=== PATIENT | female | born 1950 | race Caucasian/White ===

== ENCOUNTER 2016-05-24 19:30 | Observation (INO) | payer MEDICARE, OTHER ==
[~2016-05-24] VITALS: Ht 162.6 cm; Wt 126.1 kg
--- NOTE | 2016-05-24 20:47 | HP ---
DATE OF ADMISSION: 05/24/2016 REASON FOR ADMISSION: Anemia. HISTORY OF PRESENT ILLNESS: This 65-year-old female who has multiple medical problems is currently residing at [facility] in [place]. I follow the patient there for her medical problems. The patient was last seen by me there last week. The patient had been a patient at [facility] , where she was admitted for a debridement of a right heel diabetic ulcer. She also has osteomyelitis of the right heel and is being treated with antibiotics. The patient has chronic kidney disease. The patient last week had a serum creatinine that went up to 3.4. I discontinued the diuretics that she was taking. The patient had lab tests done yesterday, which were ordered by me, and her hemoglobin was 7.2. The patient does have a history of chronic anemia secondary to longstanding chronic kidney disease. The patient is being admitted now because of a decrease in her hemoglobin and for a blood transfusion. The patient is usually followed at [facility] by Dr. Epps. I have been following her since she has been a resident at [facility] here in [place]. Past medical history is remarkable for the patient is mostly bedridden; however, she has been increasing her ambulation with physical therapy. The patient denies any chest pain or shortness of breath. She has not had any noticeable GI blood loss. 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 CURRENT MEDICATIONS: Include the followin. Allopurinol 100 mg a day. 2. Amlodipine 5 mg 2 times a day. 3. Aspirin 81 mg a day. 4. Diazepam 5 mg at bedtime as needed for sleep. 5. Docusate sodium 200 mg by mouth at bedtime. 6. Glipizide 5 mg a day. 7. Metoprolol 50 mg twice a day. 8. Pantoprazole 40 mg a day. 9. MiraLax 1 capful daily. 10. Santyl ointment to the heel daily. 11. Terazosin 4 mg by mouth daily. 12. Tramadol 50 mg by mouth every 6 hours p.r.n. pain. 13. Levaquin 250 mg p.o. daily. PAST SURGICAL HISTORY: Partial hysterectomy. FAMILY HISTORY: Unremarkable. SOCIAL HISTORY: The patient does not smoke, does not use recreational drugs, does not drink alcohol. ALLERGIES: 1. PENICILLIN. 2. SULFA. 3. MORPHINE. 4. CODEINE. 5. ERYTHROMYCIN. PHYSICAL EXAMINATION: GENERAL: At this time reveals an obese female in no apparent distress. She is awake and alert. HEAD: Normocephalic. EYES: Extraocular muscles intact. NOSE AND MOUTH: Normal. NECK: Supple. No neck vein distention. LUNGS: Clear to auscultation. HEART: Regular rhythm. No murmurs, gallops, or rubs. ABDOMEN: Soft, nontender. No masses or megaly. EXTREMITIES: She does have a right heel ulcer, which is bandaged. IMPRESSION: Anemia of chronic kidney disease. The patient's hemoglobin has drifted down to 7.2. She is on iron supplements and erythropoietin; however, she did have a surgery 2 weeks ago on her right heel and I think that that blood loss during surgery, combined with her chronic kidney disease, have caused a decrease in her hemoglobin. I am going to admit her now to have a blood transfusion. We will continue her other medications for now. She has not had any noticeable gastrointestinal blood loss; however, I will check stool for guaiac. PLAN: 1. Resume routine medications. 2. Check labs and type and cross for 2 units of packed RBCs to be transfused in the hospital. 3. Stool for guaiac to rule out GI bleeding. 4. monitor blood sugar and use sliding scale insulin . Dictated By: KALEB MCADAMS MD, ND/RUTH Conf#: [id number] DID#: [id number]
[2016-05-24 20:50] VITALS: BP 163/63; RESP 18
[2016-05-24 21:30] VITALS: BP 140/63; Ht 162.6 cm; Wt 126.1 kg
[2016-05-24] MEDS ORDERED: SOD CHLORIDE 0.9% 250 ML IV* ONE (22:54)
[2016-05-24] MEDS ORDERED: BISACODYL (EC) 5 MG TAB PO PRN (23:00)
[2016-05-24] MEDS ORDERED: ACETAMINOPHEN 325 MG TAB PO PRN (23:00)
[2016-05-24] MEDS ORDERED: ZOLPIDEM 5 MG TAB PO PRN (23:00)
[2016-05-24] MEDS ORDERED: NACL 0.9% 3 ML SYG IV SCH (23:00)
[2016-05-24] MEDS ORDERED: HYDROCODONE/APAP (5/325) TAB PO PRN (23:00)
[2016-05-24] MEDS ORDERED: DOCUSATE SODIUM 100 MG CAP PO PRN (23:00)
[2016-05-25 00:02] LABS: ADD SCAN DIFF NO
[2016-05-25 00:06] LABS: BASOPHILS % 0.2 % (0.0-2.0); EOSINOPHILS # 0.6 10^3/ul (0.0-0.5); EOSINOPHILS % 6.6 % (0.0-7.0); HEMATOCRIT 23.5 % (37.0-47.0); HEMOGLOBIN 7.1 g/dl (12.0-16.0); LYMPHOCYTES # 1.2 10^3/ul (0.8-2.9); LYMPHOCYTES % 13.8 % (15.0-51.0); MEAN CORPUSCULAR HEMOGLOBIN 26.8 pg (29.0-33.0); MEAN CORPUSCULAR HGB CONC 30.2 g/dl (32.0-37.0); MEAN CORPUSCULAR VOLUME 88.7 fl (82.0-101.0); MEAN PLATELET VOLUME 9.4 fl (7.4-10.4); MONOCYTE # 0.5 10^3/ul (0.3-0.9); NEUTROPHIL # 6.2 10^3/ul (1.6-7.5); NUCLEATED RED BLOOD CELLS% 0.3 /100WBC (0.0-0.0); PLATELET COUNT 100 10^3/UL (140-415); RED BLOOD COUNT 2.65 10^6/ul (4.20-5.40); RED CELL DISTRIBUTION WIDTH 17.9 % (11.5-14.5); WHITE BLOOD COUNT 8.7 10^3/ul (4.8-10.8)
[2016-05-25 00:24] LABS: ALBUMIN 2.8 g/dl (3.3-4.9); CHLORIDE 103 mmol/L (97-110); POTASSIUM 4.4 mmol/L (3.5-5.1); SODIUM 140 mmol/L (135-144)
[2016-05-25 00:26] LABS: CREATININE 2.72 mg/dl (0.44-1.00)
[2016-05-25 00:27] LABS: ALANINE AMINOTRANSFERASE 17 IU/L (13-69); ALBUMIN/GLOBULIN RATIO 0.73; ALKALINE PHOSPHATASE 100 IU/L (42-121); ANION GAP 13 (8-16); ASPARTATE AMINO TRANSFERASE 19 IU/L (15-46); BILIRUBIN,INDIRECT 0.2 mg/dl (0-1.1); BILIRUBIN,TOTAL 0.2 mg/dl (0.2-1.3); BLOOD UREA NITROGEN 52 mg/dl (7-20); CALCIUM 7.8 mg/dl (8.4-10.2); CARBON DIOXIDE 28 mmol/L (21-31); GLUCOSE 90 mg/dl (70-220); TOTAL PROTEIN 6.6 g/dl (6.1-8.1)
[2016-05-25 00:31] LABS: IRON 42 ug/dl (35-150)
[2016-05-25] MEDS ORDERED: FUROSEMIDE 40 MG INJ IV SCH (00:34)
[2016-05-25 00:40] LABS: TOTAL IRON BINDING CAPACITY 198 ug/dl (241-421)
[2016-05-25] MEDS ORDERED: FUROSEMIDE 20 MG INJ IV ONE (01:00)
[2016-05-25] MEDS ORDERED: ACET500C5 PO (01:12)
[2016-05-25] MEDS ORDERED: ALLO100T PO (01:13)
[2016-05-25] MEDS ORDERED: ASPI81TA3 PO (01:14)
[2016-05-25] MEDS ORDERED: DIAZ5TAB4 PO (01:16)
[2016-05-25] MEDS ORDERED: DOCU-159 PO (01:17)
[2016-05-25] MEDS ORDERED: EPO10ESRD SC (01:18)
[2016-05-25] MEDS ORDERED: GLIP5TAB13 PO (01:19)
[2016-05-25] MEDS ORDERED: FER325 PO (01:19)
[2016-05-25] MEDS ORDERED: HEPA500021 IJ (01:21)
[2016-05-25] MEDS ORDERED: LACTINEX PO (01:23)
[2016-05-25] MEDS ORDERED: HYDR-3671 PO (01:23)
[2016-05-25] MEDS ORDERED: PROT946L PO (01:30)
[2016-05-25] MEDS ORDERED: DIAZEPAM 5 MG TAB PO PRN (01:30)
[2016-05-25] MEDS ORDERED: POLY17PO6 PO (01:30)
[2016-05-25] MEDS ORDERED: AMLO5TAB4 PO (01:30)
[2016-05-25] MEDS ORDERED: POLYETHYLENE GLYCOL 17 GM PACKET PO PRN (01:30)
[2016-05-25] MEDS ORDERED: MULT-761 PO (01:30)
[2016-05-25] MEDS ORDERED: LEVO250T35 PO (01:30)
[2016-05-25] MEDS ORDERED: METO-429 PO (01:30)
[2016-05-25] MEDS ORDERED: DOCUSATE SODIUM 100 MG CAP PO PRN (01:30)
[2016-05-25] MEDS ORDERED: ACETAMINOPHEN 500 MG TAB PO PRN (01:30)
[2016-05-25] MEDS ORDERED: traMADol 50 MG TAB PO PRN (01:30)
[2016-05-25] MEDS ORDERED: GUAIFENESIN/DM 5ML CUP PO PRN (01:30)
[2016-05-25] MEDS ORDERED: TERA2CAP3 PO (01:33)
[2016-05-25] MEDS ORDERED: TRAM50TA2 PO (01:33)
[2016-05-25] MEDS ORDERED: PANT40TA3 PO (01:33)
[2016-05-25] MEDS ORDERED: UDROBDM PO (01:33)
[2016-05-25] MEDS ORDERED: ASC500 PO (01:34)
[2016-05-25] MEDS ORDERED: TRAM-40 PO (01:34)
[2016-05-25 02:29] LABS: ADD UMIC YES; URINE BILIRUBIN (Dip) NEGATIVE (NEGATIVE); URINE BLOOD (Dip) 2+ (NEGATIVE); URINE COLOR LT. YELLOW (YELLOW); URINE GLUCOSE (Dip) NEGATIVE (NEGATIVE); URINE KETONES (Dip) NEGATIVE (NEGATIVE); URINE LEUKOCYTE ESTERASE (Dip) 1+ (NEGATIVE); URINE NITRITE (Dip) NEGATIVE (NEGATIVE); URINE TOTAL PROTEIN (Dip) 1+ (NEGATIVE); URINE UROBILINOGEN (Dip) 0.2 E.U./dL (0.1-1.0)
[2016-05-25] MEDS ORDERED: GLUCOSE GEL 15 GRAM TUBE BUCCAL PRN (03:15)
[2016-05-25] MEDS ORDERED: DEXTROSE 50% 50 ML SYRINGE IV PRN ×2 (03:15)
[2016-05-25] MEDS ORDERED: GLUCAGON 1 MG INJ IM PRN (03:15)
[2016-05-25] MEDS ORDERED: GLUCOSE GEL 15 GRAM TUBE PO PRN ×2 (03:15)
[2016-05-25 03:17] LABS: SQUAMOUS EPITHELIAL CELL,UR MANY
[2016-05-25 03:18] LABS: BACTERIA,URINE FEW
[2016-05-25] MEDS ORDERED: LEVOFLOXACIN 250 MG TAB PO SCH (06:00)
[2016-05-25 07:24] VITALS: BP 149/67; RESP 18
[2016-05-25] MEDS ORDERED: PANTOPRAZOLE (EC) 40 MG TAB PO SCH (08:00)
[2016-05-25] MEDS: INSULIN ASPART [NOVOLOG] 3 ML PEN SC SCH ×2 (08:00→12:19)
--- NOTE | 2016-05-25 08:15 | PN ---
Date/Time of Note Date/Time of Note DATE: 05/25/16 TIME: 08:09 Assessment/Plan VTE Prophylaxis VTE Prophylaxis Intervention: ambulation, heparin Lines/Catheters IV C[facility]ter Type (from [facility] Peripheral IV Urinary Cath still in place: No Assessment/Plan Chief Complaint/Hosp Course 1. anemia due to CKD . She is now finishing a second unit of blood transfusion . 2. CKD renal function is stable 3. HTN 4. DM 5. PAD , R foot , heel decubitus / diabetic ulcer , and osteomyelitis of heel . Problems: Subjective 24 Hr Interval Summary Free Text/Dictation She is feeling well .She is getting her second unit of blood transfusion . Constitutional: improved, no complaints Respiratory: no complaints Cardiovascular: no complaints Gastrointestinal: no complaints Neurologic: no complaints Exam/Review of Systems Vital Signs Vitals Vital Signs Date Time Temp Pulse Resp B/P Pulse Ox O2 Delivery O2 Flow Rate FiO2 05/25/16 07:24 98.2 65 18 149/67 97 Intake and Output 05/24/16 05/24/16 05/25/16 15:00 23:00 07:00 Intake Total 1100 ml Output Total 150 ml Balance 950 ml Exam The R heel has a decubitus ulcer . Constitutional: alert, oriented, well developed Psych: nl mood/affect, no complaints Respiratory: clear to auscultation, normal air movement Cardiovascular: nl pulses, regular rate and rhythm Gastrointestinal: soft Results Result Diagram: 05/24/16 2350 05/24/16 2350 Results 24 hrs Laboratory Tests Test 05/24/16 22:04 05/24/16 23:50 05/25/16 02:00 05/25/16 07:46 Bedside Glucose 112 90 Alanine Aminotransferase (ALT/SGPT) 17 Albumin 2.8 L Albumin/Globulin Ratio 0.73 Alkaline Phosphatase 100 Anion Gap 13 Aspartate Amino Transf (AST/SGOT) 19 Basophils # 0.0 Basophils % 0.2 Blood Urea Nitrogen 52 H Calcium Level 7.8 L Carbon Dioxide Level 28 Chloride Level 103 Creatinine 2.72 H Direct Bilirubin 0.00 Eosinophils # 0.6 H Eosinophils % 6.6 Ferritin 273.0 H Globulin 3.80 H Glucose Level 90 Hematocrit 23.5 L Hemoglobin 7.1 L Indirect Bilirubin 0.2 Iron Level 42 Lymphocytes # 1.2 Lymphocytes % 13.8 L Mean Corpuscular Hemoglobin 26.8 L Mean Corpuscular Hemoglobin Concent 30.2 L Mean Corpuscular Volume 88.7 Mean Platelet Volume 9.4 Monocytes # 0.5 Monocytes % 6.0 Neutrophils # 6.2 Neutrophils % 71.0 Nucleated Red Blood Cells # 0.0 Nucleated Red Blood Cells % 0.3 H Parathyroid Hormone (Intact) Percent Iron Saturation 21 L Platelet Count 100 L Potassium Level 4.4 Red Blood Count 2.65 L Red Cell Distribution Width 17.9 H Sodium Level 140 Total Bilirubin 0.2 Total Iron Binding Capacity 198 L Total Protein 6.6 White Blood Count 8.7 Urine Amorphous Urates MODERATE Urine Bacteria FEW Urine Bilirubin NEGATIVE Urine Clarity SLIGHTLY CLOUDY Urine Color LT. YELLOW Urine Glucose NEGATIVE Urine Hemoglobin 2+ H Urine Ketones NEGATIVE Urine Leukocyte Esterase 1+ H Urine Microscopic RBC 10-25 Urine Microscopic WBC 5-10 Urine Nitrite NEGATIVE Urine Specific [place] 1.025 Urine Squamous Epithelial Cells MANY Urine Total Protein 1+ H Urine Urobilinogen 0.2 E.U./dL Urine pH 5.5 Medications Medications Current Medications Acetaminophen (Tylenol Tab) 650 mg Q6H PRN PO PAIN LEVEL 1-3 OR FEVER; Start at 23:00 Acetaminophen/ Hydrocodone Bitart (Russell (5/325)) 1 tab Q6H PRN PO MODERATE PAIN LEVEL 4-6; Start 05/24/16 at 23:00 Docusate Sodium (Colace) 100 mg Q12H PRN PO CONSTIPATION; Start 05/24/16 at 23: 00 Bisacodyl (Dulcolax) 5 mg DAILY PRN PO CONSTIPATION; Start 05/24/16 at 23:00 Zolpidem Tartrate (Ambien) 5 mg QHS PRN PO SLEEP; Start 05/24/16 at 23:00 Acetaminophen (Tylenol Tab) 650 mg Q6H PRN PO MILD PAIN LEVEL 1-3; Start at 01:30 Allopurinol (Zyloprim) 100 mg DAILY PO ; Start 05/25/16 at 09:00 Amlodipine Besylate (Norvasc) 5 mg BID PO ; Start 05/25/16 at 09:00 Ascorbic Acid (Vitamin C) 500 mg DAILY PO ; Start 05/25/16 at 09:00 Aspirin (Aspirin) 81 mg DAILY PO ; Start 05/25/16 at 09:00 Diazepam (Valium) 5 mg QHS PRN PO INSOMNIA; Start 05/25/16 at 01:30 Docusate Sodium (Colace) 100 mg QHS PRN PO CONSTIPATION; Start 05/25/16 at 01: 30 Epoetin Shubham (Epogen (Esrd)) 10,000 units MoWeFr@17 SC ; Start 05/25/16 at 17:00 Ferrous Sulfate (Ferrous Sulfate (Ec)) 325 mg BID PO ; Start 05/25/16 at 09:00 Guaifenesin/ Dextromethorphan (Robitussin Dm Liquid Cup) 5 ml Q12 PRN PO COUGH ; Start 05/25/16 at 01:30 Hydralazine HCl (Apresoline) 25 mg Q6H PRN PO ELEVATED SYSTOLIC BP; Start 05/25 at 01:30 Lactobacillus Acidoph/Bulgaricus (Floranex) 1 tab TID PO ; Start 05/25/16 at 09: 00 Levofloxacin (Levaquin) 250 mg DAILY@06 PO Last administered on 05/25/16t 06:12 ; Admin Dose 250 MG; Start 05/25/16 at 06:00 Metoprolol Tartrate (Lopressor) 50 mg BID PO ; Start 05/25/16 at 09:00 Multivitamins Therapeutic (Theragran) 1 tab DAILY PO ; Start 05/25/16 at 09:00 Polyethylene Glycol (Miralax) 17 gm DAILY PRN PO CONSTIPATION; Start 05/25/16 at 01:30 Terazosin HCl (Hytrin) 4 mg DAILY@21 PO ; Start 05/25/16 at 21:00 Tramadol HCl (Ultram) 50 mg Q6H PRN PO MODERATE PAIN LEVEL 4-6; Start 05/25/16 at 01:30 Tramadol HCl (Ultram) 50 mg DAILY PO ; Start 05/25/16 at 09:00 Heparin Sodium (Porcine) (Heparin (5000 Units/0.5 ml)) 5,000 unit Q12 SC ; Start 05/25/16 at 09:00 Diagnostic Test (Pha) (Accucheck) 1 ea 02 XX ; Start 05/26/16 at 02:00 Miscellaneous Information 1 ea NOTE XX ; Start 05/25/16 at 03:15 Glucose (Glutose) 15 gm Q15M PRN PO DECREASED GLUCOSE; Start 05/25/16 at 03:15 Glucose (Glutose) 22.5 gm Q15M PRN PO DECREASED GLUCOSE; Start 05/25/16 at 03: 15 Dextrose (D50w Syringe) 25 ml Q15M PRN IV DECREASED GLUCOSE; Start 05/25/16 at 03:15 Dextrose (D50w Syringe) 50 ml Q15M PRN IV DECREASED GLUCOSE; Start 05/25/16 at 03:15 Glucagon (Glucagen) 1 mg Q15M PRN IM DECREASED GLUCOSE; Start 05/25/16 at 03:15 Glucose (Glutose) 15 gm Q15M PRN BUCCAL DECREASED GLUCOSE; Start 05/25/16 at 03 :15 KALEB MCADAMS MD May 25, 2016 08:15
[2016-05-25] MEDS ORDERED: DIPHENHYDRAMINE 25 MG CAP PO PRN (08:30)
[2016-05-25] MEDS: LACTOBACILLUS CHEW TAB PO SCH ×2 (08:37→12:18)
[2016-05-25] MEDS ORDERED: METOPROLOL 50 MG TAB PO SCH (09:00)
[2016-05-25] MEDS ORDERED: NON-FORMULARY/PATIENT OWN MED (Protein Supplement (Promod) 30 ML) PO SCH (09:00)
[2016-05-25] MEDS ORDERED: ALLOPURINOL 100 MG TAB PO SCH (09:00)
[2016-05-25] MEDS ORDERED: ASPIRIN 81 MG TAB PO SCH (09:00)
[2016-05-25] MEDS ORDERED: MULTIVITAMINS THERAPEUTIC TAB PO SCH (09:00)
[2016-05-25] MEDS ORDERED: HEPARIN 5,000 UNIT/0.5 ML SYG SC SCH (09:00)
[2016-05-25] MEDS ORDERED: AMLODIPINE 5 MG TAB PO SCH (09:00)
[2016-05-25] MEDS ORDERED: traMADol 50 MG TAB PO SCH (09:00)
[2016-05-25] MEDS ORDERED: ASCORBIC ACID 500 MG TAB PO SCH (09:00)
[2016-05-25] MEDS ORDERED: FERROUS SULFATE (EC) 325 MG TAB PO SCH (09:00)
[2016-05-25 10:28] LABS: ADD SCAN DIFF NO
[2016-05-25 10:38] LABS: ABNORMAL IP MESSAGE 1; BASOPHILS % 0.2 % (0.0-2.0); EOSINOPHILS # 0.5 10^3/ul (0.0-0.5); EOSINOPHILS % 6.1 % (0.0-7.0); HEMATOCRIT 28.2 % (37.0-47.0); LYMPHOCYTES # 0.9 10^3/ul (0.8-2.9); LYMPHOCYTES % 10.8 % (15.0-51.0); MEAN CORPUSCULAR HEMOGLOBIN 28.3 pg (29.0-33.0); MEAN CORPUSCULAR HGB CONC 31.9 g/dl (32.0-37.0); MEAN CORPUSCULAR VOLUME 88.7 fl (82.0-101.0); MEAN PLATELET VOLUME 9.5 fl (7.4-10.4); MONOCYTE # 0.5 10^3/ul (0.3-0.9); MONOCYTES % 6.2 % (0.0-11.0); NEUTROPHILS % 74.5 % (39.0-77.0); NUCLEATED RED BLOOD CELLS% 0.4 /100WBC (0.0-0.0); PLATELET COUNT 95 10^3/UL (140-415); RED BLOOD COUNT 3.18 10^6/ul (4.20-5.40); RED CELL DISTRIBUTION WIDTH 17.3 % (11.5-14.5)
--- NOTE | 2016-05-25 11:09 | PDOCDIS ---
Discharge Instructions CONDITION Patient Condition: Good HOME CARE INSTRUCTIONS: Diet Instructions: Reduced CalorieSpecial Diet: CARB CONTROL ACTIVITY: Activity Restrictions: Slowly Increase Activity Rest between Activity Weight Bearing Bathing Restrictions: Shower FOLLOW UP/APPOINTMENTS Appointments KLAEB Raymundo MD May 25, 2016 11:09
[2016-05-25 16:27] VITALS: BP 160/72; PULSE 67
[2016-05-25] MEDS ORDERED: EPOETIN 10000 UNITS/1 ML INJ (ESRD) SC SCH (17:00)
[2016-05-25] MEDS ORDERED: TERAZOSIN 2 MG CAP PO SCH (21:00)
[2016-05-26] MEDS ORDERED: ACCU-CHEK XX SCH (02:00)
== END 2016-05-25 16:30 ==
LOC: INTOOBSV 20:43 → PP2 20:43
PROVIDERS: ADMIT Internal Medicine; ATTEND Internal Medicine
DX: D63.1 Anemia in chronic kidney disease (principal); E11.22 Type 2 diabetes mellitus with diabetic chronic kidney disease; I13.0 Hypertensive heart and chronic kidney disease with heart failure and stage 1 through stage 4 chronic kidney disease, or unspecified chronic kidney disease; N18.4 Chronic kidney disease, stage 4 (severe); I50.20 Unspecified systolic (congestive) heart failure; K21.9 Gastro-esophageal reflux disease without esophagitis; E66.9 Obesity, unspecified; Z68.42 Body mass index [BMI] 45.0-49.9, adult; Z88.0 Allergy status to penicillin; Z88.2 Allergy status to sulfonamides; Z88.5 Allergy status to narcotic agent; Z88.1 Allergy status to other antibiotic agents; Z90.710 Acquired absence of both cervix and uterus; Z79.82 Long term (current) use of aspirin; Z79.84 Long term (current) use of oral hypoglycemic drugs
CPT/HCPCS: 36430; 80053; 81001; 82728; 82962; 83540; 83970; 85025; 86850; 86900; 86901; 86920; 87081; 87086; 96372; 96374; A4310; G0378; J1644; J1815; J1940; J7040; P9016; 81003; 99217; J0886